=== PATIENT | female | born 1985 | race African-American/Black ===

== ENCOUNTER 2024-09-26 21:50 | Emergency (ER) | payer SELFPAY ==
[~2024-09-26] VITALS: Ht 157.5 cm; Wt 59.0 kg
[2024-09-26 21:54] VITALS: O2SAT 100
[2024-09-26 21:56] VITALS: TEMP 36.8; O2SAT 98
[2024-09-27 00:03] VITALS: BP 138/98; PULSE 109; RESP 16
[2024-09-27] MEDS: LIDOCAINE 5% PATCH TOP SCH (00:03)
[2024-09-27] MEDS: KETOROLAC 15MG/ML VIAL IM ONE (00:03)
[2024-09-27] MEDS: CYCLOBENZAPRINE 10MG TABLET PO SCH (00:03)
[2024-09-27] MEDS ORDERED: NAPR-1176 MT (01:04)
[2024-09-27] MEDS ORDERED: LIDO700A15 TP (01:04)
== END 2024-09-27 01:23 | disposition home or self-care (01) ==
LOC: ER 21:50
DX: M54.50 Low back pain, unspecified (principal)
CPT/HCPCS: 99283; 81025; 96372; J1885